=== PATIENT | female | born 1985 | race Caucasian/White ===

== ENCOUNTER 2022-11-07 05:41 | Emergency (ER) | payer OTHER, SELFPAY ==
--- NOTE | ~2022-11-07 | US_ITS ---
EXAMINATION: US right upper quadrant DATE: 11/07/2022 08:37 INDICATION: Right upper quadrant abdominal pain. TECHNIQUE: Multiple grayscale and Doppler ultrasound images of the abdomen were obtained. COMPARISON: None FINDINGS: The visualized portions of the head and body of the pancreas are normal. The liver is ileana l without focal lesion. There is normal flow in main portal vein. The gallbladder is normal in size a nd contains gallstones. No gallbladder wall thickening or sonographic Moreno sign. The common duct is normal and measures 6 mm. IMPRESSION: 1. Cholelithiasis. No evidence of acute cholecystitis. Reviewed, dictated and finalized at location A.
[2022-11-07 05:45] VITALS: BP 139/91; PULSE 92; RESP 16; TEMP 36.2; O2SAT 100
[2022-11-07 08:17] LABS: Basophils Absolute Auto 0.1 K/mm3 (0.0-0.1); Basophils Percent Auto 0.5 % (0.2-1.2); Eosinophils Absolute Auto 0.2 K/mm3 (0-0.3); Eosinophils Percent Auto 2.5 % (0-4.4); Hematocrit 41.6 % (37.0-47.0); Hemoglobin 14.3 g/dL (12.0-15.0); Immature Granulocyte Absolute 0.04 K/mm3 (0.00-0.031); Immature Granulocyte Percent A 0.4 % (0-0.5); Lymphocytes Absolute Auto 2.54 K/mm3 (0.9-3.2); Lymphocytes Percent Auto 26.3 % (18.3-44.2); Mean Corpuscular HGB Conc 34.4 g/dl (32-36); Mean Corpuscular Hemoglobin 30.8 pg (26-34); Mean Corpuscular Volume 89.7 fl (80-100); Mean Platelet Volume 8.8 fl (7.4-10.4); Monocytes Absolute Auto 0.9 K/mm3 (0.1-0.6); Monocytes Percent Auto 9.3 % (2.6-8.5); Neutrophils Absolute Auto 5.9 K/mm3 (1.3-6.7); Platelet Count Result 202 k/mm3 (150-375); Red Blood Count 4.64 M/mm3 (4.2-5.4); White Blood Count 9.6 K/mm3 (4.5-10.0)
[2022-11-07 08:27] LABS: Alanine Aminotransferase 17 U/L (6-35); Albumin Level 4.4 g/dL (3.5-5.1); Alkaline Phosphatase 54 U/L (38-126); Anion Gap 2 mmol/L (8-16); Aspartate Amino Transferase 22 U/L (14-36); Bilirubin,Total 0.3 mg/dL (0.2-1.3); Blood Urea Nitrogen 10 mg/dL (7-17); Calcium 9.1 mg/dL (8.4-10.2); Carbon Dioxide 30 mmol/L (22-30); Chloride 106 mmol/L (98-107); Estimated Glomerular Filt Rate > 60; Glucose 101 mg/dL (65-110); Lipase 95 U/L (23-300); Potassium 4.1 mmol/L (3.4-5.0); Sodium 138 mmol/L (137-145)
[2022-11-07 08:29] LABS: INR 0.9; Partial Thromboplastin Time 33.5 SECONDS (22.3-36.8); Prothrombin Time 12.6 Seconds (11.1-14.7)
[2022-11-07 08:39] LABS: Troponin I < 0.012 ng/mL (0.000-0.034)
[2022-11-07 09:25] LABS: Appearance Urine Cloudy (Clear); Bacteria Urine 1+ /hpf; Bilirubin Urine Negative (Negative); Blood Urine 1+ (Negative); Color Urine Dark Yellow (Yellow); Glucose Urine UA Negative (Negative); Ketones Urine Trace mg/dL (Negative); Leukocyte Esterase Ur Negative LEU/UL (Negative); Need Manual Microscopic Reviewed; Nitrate Urine Negative (Negative); Non Pathogenic Casts 0-2; Protein Urine Trace mg/dL (Negative); Specific Grav Ur 1.033 (1.001-1.035); Squamous Epithelial Cell Urine Occasional /hpf (Few); WBC Urine 0-5 /hpf; pH Urine 5.5 (5.0-9.0)
[2022-11-07 09:26] LABS: Add Urine Microscopic? YES
--- NOTE | 2022-11-07 10:00 | ED.ABDPAIN ---
HPI - Abdominal Pain General Chief Complaint: Abdominal Pain Stated Complaint: abd pain/ gallbladder episode Time Seen by Provider: 11/07/22 07:46 History of Present Illness HPI narrative: Pt presents with intermittent RUQ pain for years but persistent since last night and was getting worse now improving on arrival here and nearly gone. Pt denies fever or vomiting. Pt already on low fat diet because she figured she had GB problems and has been fairly well controlled but never had work up. Related Data Allergies Allergy/AdvReac Type Severity Reaction Status Date / Time No Known Allergies Allergy Verified 11/07/22 05:45 Review of Systems Review of Systems: All systems reviewed & are unremarkable except as noted in HPI and below Exam Const: General: healthy appearing Nutritional Appearance: well nourished Orientation/consciousness: patient oriented x3 Limitations: no limitations Eyes: Pupils: Equal, round and reactive pupils present EOM: EOMs intact bilaterally Resp: Effort & Inspection: normal respiratory effort Auscultation: clear to auscultation bilaterally Cardio: Rate: regular rate Rhythm: regular rhythm GI: GI Palp: Yes Soft to palpation and Yes Tenderness to palpation present (GI) (mild ruq) Auscultation: normal bowel sounds Skin: General skin exam: normal color Rashes: no rashes Wounds: no wounds Neuro: General: patient oriented x3, moves all extremities, no meningeal signs, no focal motor deficits and CN's II-XI intact bilaterally Cranial nerves: Yes Nystagmus not present Speech: normal speech Extrem: General: normal to inspection and no clubbing, cyanosis or edema Psych: Mental Status: mental status grossly normal Affect: normal affect Attitude: cooperative Course Vital Signs Vital signs: Vital Signs Temperature 97.2 F L 11/07/22 05:45 Pulse Rate 92 11/07/22 05:45 Respiratory Rate 16 11/07/22 05:45 Blood Pressure 139/91 H 11/07/22 05:45 Pulse Oximetry 100 11/07/22 05:45 Oxygen Delivery Room Air 11/07/22 05:45 Temperature 97.2 F L 11/07/22 05:45 Pulse Rate 90 11/07/22 10:15 Respiratory Rate 16 11/07/22 10:15 Blood Pressure 127/88 11/07/22 10:15 Pulse Oximetry 100 11/07/22 10:15 Oxygen Delivery Room Air 11/07/22 05:45 MDM - Abdominal Pain MDM Narrative Medical decision making narrative: pt has intermittent ruq pain for some otme worse last night but now improved. ultrasound and labs ordered. Sono show gallstone but no cholecystici labs look good and pt comfortable. discussed with dr kilpatrick and will see in follow up. Differential Diagnosis Differential diagnosis: Likely gastroenteritis, pancreatitis and other (gallstone) Medical Records Attestation: I reviewed the patient's medical records. Lab Data Attestation: I reviewed the patient's lab results. 11/07/22 08:07 11/07/22 08:07 Labs: Lab Results 11/07/22 11/07/22 Range/Units 08:07 08:42 WBC 9.6 (4.5-10.0) K/mm3 RBC 4.64 (4.2-5.4) M/mm3 Hgb 14.3 (12.0-15.0) g/dL Hct 41.6 (37.0-47.0) % MCV 89.7 (80-100) fl MCH 30.8 (26-34) pg MCHC 34.4 (32-36) g/dl RDW 13.0 (11.5-14.5) % Plt Count 202 (150-375) k/mm3 MPV 8.8 (7.4-10.4) fl Immature Gran % (Auto) 0.4 (0-0.5) % Neut % (Auto) 61.0 (45.5-73.1) % Lymph % (Auto) 26.3 (18.3-44.2) % [place] % (Auto) 9.3 H (2.6-8.5) % Eos % (Auto) 2.5 (0-4.4) % Baso % (Auto) 0.5 (0.2-1.2) % Lymph # (Auto) 2.54 (0.9-3.2) K/mm3 [place] # (Auto) 0.9 H (0.1-0.6) K/mm3 Eos # (Auto) 0.2 (0-0.3) K/mm3 Baso # (Auto) 0.1 (0.0-0.1) K/mm3 Abs Immat Gran (auto) 0.04 H (0.00-0.031) K/mm3 Absolute Neuts (auto) 5.9 (1.3-6.7) K/mm3 Absolute Nucleated RBC 0.0 (0.0-0.012) K/mm3 Nucleated RBC % 0.0 (0.0-0.2) % PT 12.6 (11.1-14.7) Seconds INR 0.9 APTT 33.5 (22.3-36.8) SECONDS Sodium 138 (137-145) mmol/L Potassium 4.1 (3.4-5.0) mmol/L Chlo
[2022-11-07 10:15] VITALS: BP 127/88; PULSE 90; RESP 16; O2SAT 100
== END 2022-11-07 10:15 | disposition home or self-care (01) ==
PROVIDERS: Emergency Medicine; Emergency Provider Emergency Medicine
DX: K80.20 Calculus of gallbladder without cholecystitis without obstruction (principal)
CPT/HCPCS: 36415; 76705; 80053; 81001; 81025; 83690; 84484; 85025; 85610; 85730; 99284

== ENCOUNTER 2022-12-25 02:27 | Day surgery (SDC) | payer OTHER, SELFPAY ==
[2022-12-20 15:11] VITALS: BMI 35.3
--- NOTE | 2022-12-20 15:18 | PC.NURSE ---
Report to the Outpatient Waiting Room, entrance under the green pavilion located off [facility], at time 7:30 on date 12/25/22. Planned Procedure Time: 9:30. Time changes happen often and if your time is changed the preop area will call you the afternoon before. - You and your visitor will be asked to self-screen and do not enter if you have any COVID symptoms. - A mask is optional within the hospital at this time. Patients may have clear liquids (water, carbonated beverages, clear teas, apple juice) until 3 hours prior to surgery (6:30) with a maximum of 20 ounces. - No food from midnight until time of surgery Take the following medications with a SIP of water the morning of surgery: NONE DO NOT STOP ANY OF YOUR OTHER PRESCRIPTION MEDICATIONS PRIOR TO SURGERY ?EXCEPT THE FOLLOWING Medications to discontinue per physician: VITAMINS Date to take last dose: 12/21/22 Please no make-up, nail guinean, hairspray, perfume, deodorant, or body powder the day of surgery. No jewelry (including any body piercings) or valuables the day of surgery, leave them at home. Please take a shower or bath the night before, or the morning of, surgery with an antibacterial soap. Wear comfortable, loose fitting clothing. - Jewelry must be removed prior to entering the operating room. Rings and piercings that are not removed may be cut off. - The hospital will not accept responsibility for valuables. - Please leave all valuables, including medications, at home the day of surgery. If you are going home after surgery, a licensed service parts driver must drive you home. - NO public transportation without another adult if you receive anesthesia. - We recommend that an adult stay with you for 24 hours following discharge. - We also recommend that you do not drive, make important decision, drink alcoholic beverages, or take any drugs that were not prescribed by your health care provider for at least 24 hours after your discharge time. Follow any additional instructions given to you from your surgeon. If you or anyone in your household have experienced Covid symptoms in the past week, please notify your surgeon or the nurse liaison at the phone number below for possible testing. Telephone instructions given to PT - DENISE MORENO and asked if any additional questions and then verbalized understanding. Patient advised to call surgeon office or pre surgery nurse liaison [phone] if any additional questions.
[2022-12-25] VITALS (12 sets, daily range): BP systolic 109–139; BP diastolic 67–87; PULSE 57–84; RESP 14–16; TEMP 36.6–36.8; O2SAT 96–100; BMI 34.8
--- NOTE | 2022-12-25 07:54 | WPDHPUPDATE1 ---
History and Physical Update Update Date/Time: 12/25/22 07:54 History and Physical has been reviewed, including an updated exam of the patient. There are NO changes in the patient's condition. Risks, benefits, and alternatives have been discussed and questions answered. Patient agrees to proceed with procedure.
--- NOTE | 2022-12-25 08:02 | ECG_ITS ---
Measurements Intervals [place] Rate: 70 P: 67 TX: 170 QRS: 15 QRSD: 98 T: 15 QT: 377 QTc: 408 Interpretive Statements SINUS RHYTHM DELAYED PRECORDIAL R/S TRANSITION CONSIDER INFERIOR INFARCT, AGE INDETERMINATE NONSPECIFIC T-WAVE ABNORMALITY- ANTEROLATERAL LEADS ABNORMAL ECG NO PREVIOUS ECG AVAILABLE FOR COMPARISON Electronically Signed On 12-25-2022 9:13:08 CDT by Dillon Chadwick D.O.
--- NOTE | 2022-12-25 08:03 | P.PNAN_ITS ---
Anes - Initial Pre Proc Eval Procedure: Operation Date: 12/25/22 09:30 Proposed Procedures p Laparoscopic Cholecystectomy - Epifanio John MD Date/Time: 12/25/22 08:03 Surgeon: Epifanio John MD Pre Op Diagnosis: Chr Cholecystitis with Stones Patient Data Age: 37 Gender: F Height: 1.51 m Weight: 80.75 kg Allergies Allergy/AdvReac Type Severity Reaction Status Date / Time Penicillins Allergy Unknown Unknown Verified 12/20/22 15:11 paroxetine [From Paxil] Allergy Other Verified 12/20/22 15:17 Home Medications Medication Instructions Recorded Confirmed Type multivitamin 1 tablet PO DAILY 11/19/22 12/25/22 History Patient hx anesthesia problems: none Family hx anesthesia problems: none Results Review: All pre-operative results and documents have been reviewed as part of the pre- operative evaluation. [facility] Past Medical History Medical History (Updated 12/25/22 @ 08:06 by Abhay Blackburn DO) Anxiety Depression Seizure age 14 Surgical History Surgical History History of surgery on wrist Previous section 2004, 2006, 2011, 2012 Family History Family History Father Hypertension Other Cancer Diabetes mellitus Heart disease Social History Social History (Updated 12/19/22 @ 10:34 by Lamar Verma) Smoking packs per day: 1 Smoking cigarettes per day: 20.0 Years smoked: 20 Smoking pack-years: 20.00 Smoking status: Current every day smoker Tobacco type: cigarettes Alcohol intake: current Alcohol use details: 4/YEAR Substance use: never Substance use type: does not use Living arrangements: with family Occupation/Education: occupation 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 Informed Consent: The patient's anesthetic plan and its attendant risks and benefits were discussed with the patient/family/POA. Questions were solicited and answers provided to the satisfaction of the patient/family/POA.
[2022-12-25] MEDS: LACTATED RINGERS 1,000 ML 30 ML IV CONT ×2 (08:45→11:22)
[2022-12-25] MEDS: ACETAMINOPHEN 500 MG TABLET 1000 MG PO (09:02)
[2022-12-25] MEDS: KETOROLAC 15 MG/ML VIAL (*BKC) IV PUSH (09:03)
[2022-12-25 09:09] LABS: Alanine Aminotransferase 15 U/L (6-35); Albumin Level 4.3 g/dL (3.5-5.1); Alkaline Phosphatase 47 U/L (38-126); Amylase 71 U/L (30-110); Aspartate Amino Transferase 17 U/L (14-36); Bilirubin,Total 0.4 mg/dL (0.2-1.3); Lipase 114 U/L (23-300)
[2022-12-25] MEDS: ceFAZolin 2 GM/D5W 50 ML 2 GM/50 ML BAG IVPB (10:12)
--- NOTE | 2022-12-25 10:24 | W.PM.PROC2 ---
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 These are often associated with eating fatty foods. She had a particularly severe episode of this and went to the emergency room just a couple of weeks ago. Evaluation there did show gallstones but no evidence of acute cholecystitis. Her liver function tests were normal as well. She was seen in the office and felt to have chronic cholecystitis with gallstones. She is taken to surgery now for laparoscopic cholecystectomy Findings Many stones in the gallbladder, gallbladder wall thickening consistent with chronic inflammation. No biliary ductal dilatation. No liver abnormalities. Description of Procedure Patient was taken to surgery and induced into general anesthesia. The abdomen is prepped and draped. Trocars were placed in usual fashion using [employer] optical trocars and a 5 mm camera. Prior to placing the initial trocar, a varies needle was introduced to insufflate the abdomen adequately. With the trocars in position, the patient was placed in reverse Trendelenburg and the gallbladder was easily visualized. A laparoscopic aspirator was used to decompress the gallbladder and the cholecystotomy was closed with a Vicryl endoloop. The gallbladder was then retracted anterosuperiorly. Dissection was carried out in the cholecystohepatic triangle. The cystic duct and cystic artery were then dissected out clearly. The gallbladder was dissected off the liver at its lower 3rd. Critical view was achieved. We then securely clipped and divided the cystic duct and cystic artery. Gallbladder was dissected off the liver over the remainder of the attachments to the gallbladder fossa and the peritoneal attachments. Cautery was used for hemostasis. Once the gallbladder was freed from the liver, it was placed in an Endo-Catch bag. It was retrieved through the 10 11 epigastric trocar site. We then replaced the epigastric trocar and reviewed the right upper quadrant. Some additional cautery was used on the gallbladder fossa. We then repeatedly irrigated and suctioned the areas of dissection and the right upper quadrant. All looked good with no evidence of bleeding or bile leakage. We then evacuated CO2 and removed the trocar sleeves. Skin wounds were closed with subcuticular 4-0 Monocryl skin suture. The wounds were dressed with Exofin surgical adhesive. Patient was awakened and taken to recovery in good condition. Sponge and needle counts were correct x2. Estimated Blood Loss -10 Drains No Packing No Pathology Yes (Gallbladder) Complications No immediate complications Condition Stable Disposition PACU [facility] Billing Surgery - Charge Forward: Surgery Billing (Laparoscopic cholecystectomy)
[2022-12-25] MEDS: BUPIVACAINE/EPINEPHRINE 0.5% 50 ML VIAL 30 ML INFILTRATE (10:27)
[2022-12-25] MEDS: fentaNYL CITRATE INJ (*CRX) 100 MCG/2 ML VIAL 25 MCG IV PUSH ×2 (12:22→12:34)
== END 2022-12-25 14:10 | disposition home or self-care (01) ==
PROVIDERS: Visit Provider Surgery
PROC: 0FT44ZZ Resection of Gallbladder, Percutaneous Endoscopic Approach (ICD-10-PCS; CPT 47562; principal; 2022-12-25 09:30)
DX: K80.10 Calculus of gallbladder with chronic cholecystitis without obstruction (principal); F17.210 Nicotine dependence, cigarettes, uncomplicated; E66.9 Obesity, unspecified; Z68.34 Body mass index [BMI] 34.0-34.9, adult
CPT/HCPCS: 47562; 36415; 80076; 82150; 83690; 86850; 86900; 86901; 88304; 93005; A9270; C1713; J0690; J1100; J1885; J2250; J2405; J2704; J3010; J7120

== ENCOUNTER 2025-02-19 16:22 | Emergency (ER) | payer SELFPAY ==
--- NOTE | ~2025-02-19 | CT_ITS ---
CT abdomen pelvis w con Clinical History: epigastric pain going to back. hx cholecystectomy . Comparison: None Technique: Axial images lung bases to symphysis pubis 100 mL Omnipaque 350 Coronal, sagittal reformats CT images acquired with automatic exposure control for dose reduction DLP: 611 mGy-cm Findings: Lung bases: Clear. Visualized heart and pericardium: Unremarkable. Liver: Unremarkable. Gallbladder: Removed. Spleen: Unremarkable. Pancreas: Unremarkable. Adrenal glands: Unremarkable. Kidneys: Right kidney- No hydronephrosis. No renal stones. Left kidney- No hydronephrosis. No renal stones. Distal esophagus/stomach: Distal gastric wall thickening. Mild distal esophagitis. Small bowel loops: Normal caliber and wall thickness. Colon: Diverticula. Normal caliber and wall thickness. Normal RLQ appendix. Nodes: No enlarged nodes. Peritoneum: No ascites. No free air. Urinary bladder: Unremarkable. Uterus: Unremarkable. Adnexa: No masses. Bones: No acute bony abnormality. Soft tissues: Small umbilical hernia with fat. Aorta: No aneurysm or dissection. IVC: Unremarkable. Main portal vein/SMV/splenic vein: Patent. IMPRESSION: 1. Gastritis. Reviewed, dictated and finalized at location R. 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 Gastritis.
[2025-02-19 16:28] VITALS: BP 142/88; PULSE 97; RESP 16; TEMP 36.8; O2SAT 99
[2025-02-19 18:22] VITALS: BP 130/81; PULSE 105; RESP 17; O2SAT 100
--- NOTE | 2025-02-19 19:47 | ED_ITS ---
HPI - Abdominal Pain General Chief Complaint: Abdominal Pain Stated Complaint: ABD PAIN Time Seen by Provider: 02/19/25 19:35 History of Present Illness HPI narrative: 39-year-old female with history of prior cholecystectomy presenting to the emergency depart with colicky epigastric abdominal pain sometimes radiating towards her back. Started at 2:00 a.m. and woke her from sleep associated with nausea and 1 episode of emesis. No lower abdominal symptoms. No diarrhea, constipation, shortness a breath, chest pain. No fever or chills. No traumatic injuries. Was otherwise in her normal state of health. States it feels very similar to her gallbladder problems without was taken care of 2 years ago. No other abdominal surgical history. Denies any recent illnesses or new medications. Related Data Home Medications ?Medication ?Instructions ?Recorded ?Confirmed ?Last Taken ?Type multivitamin 1 tablet PO DAILY 11/19/22 1 04/19/22 12/21/22 History Allergies Allergy/AdvReac Type Severity Reaction Status Date / Time Penicillins Allergy Unknown Unknown Verified 02/19/25 16:28 paroxetine (From Paxil) Allergy Other Verified 02/19/25 16:28 Review of Systems 2 Review of Systems: As reviewed above in HPI All systems reviewed & are unremarkable except as noted in HPI and below PMFSH Past Medical History Medical History Seizure age 14 Anxiety Depression Surgical History Surgical History History of laparoscopic cholecystectomy History of surgery on wrist Previous section 2004, 2006, 2011, 2012 Family History Family History Father Hypertension Other Cancer Diabetes mellitus Heart disease Social History Social History Smoking packs per day: 1 Smoking cigarettes per day: 20.0 Years smoked: 20 Smoking pack-years: 20.00 Smoking status: Current every day smoker Tobacco type: cigarettes Alcohol intake: current Alcohol use details: 4/YEAR Substance use: never Substance use type: does not use Living arrangements: with family 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 Mucous membranes moist. NECK: Supple. CHEST: [Clear to auscultation. No respiratory distress.] HEART: [Regular rate and rhythm]. No murmur heard. [Normal peripheral pulses.] ABDOMEN: Soft and nondistended, tender to palpation epigastrium minimally, no rebound or guarding. No rigidity. No signs of peritonitis. EXTREMITIES: Normal range of motion. [No edema.] SKIN: Warm, dry, no rash. NEURO: [No focal deficits]. Alert and oriented [x3.] PSYCH: [Normal mood and affect.] Course Vital Signs Vital signs: Vital Signs Temperature 36.8 C 02/19/25 16:28 Pulse Rate 97 02/19/25 16:28 Respiratory Rate 16 02/19/25 16:28 Blood Pressure 142/88 H 02/19/25 16:28 Pulse Oximetry 99 02/19/25 16:28 Oxygen Delivery Room Air 02/19/25 16:28 Temperature 36.8 C 02/19/25 16:28 Pulse Rate 89 02/20/25 00:50 Respiratory Rate 18 02/20/25 00:50 Blood Pressure 107/67 02/20/25 00:50 Pulse Oximetry 100 02/20/25 00:50 Oxygen Delivery Room Air 02/19/25 16:28 [facility] MDM Narrative Medical decision making narrative: 39-year-old female with history of prior cholecystectomy presenting to the emergency depart with colicky epigastric abdominal pain sometimes radiating towards her back. Started at 2:00 a.m. and woke her from sleep associated with nausea and 1 episode of emesis. No lower abdominal symptoms. No diarrhea, constipation, shortness a breath, chest pain. No fever or chills. No traumatic injuries. Was otherwise in her normal state of health. States it feels very similar to her gallbladder problems without was taken care of 2 years ago. No other abdominal surgical history. Denies any recent illnesses or new medications. Patient does have a mildly tender epigastrium. No fever or significant blood pressure concerns. No tachypnea or hypoxemia. No significant tachycardia. She otherwise is well appearing not any distress. History of cholecystectomy but still potential for choledocholithiasis or other biliary tree pathology, hepatitis, pancreatitis, intra-abdominal infection. Possibly gastritis. Otherwise normal state of health. Given pain control medications fluids and Zofran. Laboratory studies and a CT scan obtained for further evaluation. CT scan report shows marked thickening of the distal stomach which could be infectious or inflammatory. Possibility of malignant less likely. Adjacent lymph nodes are 6 mm and indeterminate. Solid organs are within normal limits. No bowel obstruction. No diverticulitis. Normal appendix. Laboratory studies largely unremarkable. No significant leukocytosis or anemia. Normal platelet count. Electrolytes are normal. Normal creatinine and LFTs. Normal lipase. Negative test. Patient is safe for discharge and given GI follow-up instructions as well as prescription for Pepcid and return precautions. Differential Diagnosis Differential Diagnosis: History of cholecystectomy but still potential for choledocholithiasis or other biliary tree pathology, hepatitis, pancreatitis, intra-abdominal infection. Possibly gastritis. Lab Data MDM Lab Attestation statement: I personally reviewed the patient's lab results. 02/19/25 20:08 02/19/25 20:08 Labs: Lab Results 02/19/25 Range/Units 20:08 WBC 10.3 H (4.5-10.0) K/mm3 RBC 4.58 (4.2-5.4) M/mm3 Hgb 13.8 (12.0-15.0) g/dL Hct 40.2 (37.0-47.0) % MCV 87.8 (80-100) fl MCH 30.1 (26-34) pg MCHC 34.3 (32-36) g/dl RDW 13.2 (11.5-14.5) % Plt Count 197 (150-375) k/mm3 MPV 9.2 (7.4-10.4) fl Immature Gran % (Auto) 0.3 (0-0.5) % Neut % (Auto) 61.9 (45.5-73.1) % Lymph % (Auto) 24.9 (18.3-44.2) % [place] % (Auto) 10.0 H (2.6-8.5) % Eos % (Auto) 2.2 (0-4.4) % Baso % (Auto) 0.7 (0.2-1.2) % Lymph # (Auto) 2.55 (0.9-3.2) K/mm3 [place] # (Auto) 1.0 H (0.1-0.6) K/mm3 Eos # (Auto) 0.2 (0-0.3) K/mm3 Baso # (Auto) 0.1 (0.0-0.1) K/mm3 Abs Immat Gran (auto) 0.03 (0.00-0.031) K/mm3 Absolute Neuts (auto) 6.3 (1.3-6.7) K/mm3 Absolute Nucleated RBC 0.000 (0.0-0.012) K/mm3 Nucleated RBC % 0.0 (0.0-0.2) % Sodium 137 (137-145) mmol/L Potassium 3.5 (3.4-5.0) mmol/L Chloride 106 (98-107) mmol/L Carbon Dioxide 27 (22-30) mmol/L Anion Gap 4 (4-12) mmol/L BUN 9 (7-17) mg/dL Creatinine 0.69 L (0.7-1.0) mg/dL Estim Creat Clear Calc Not Reportable Estimated GFR > 60 (59 - ) Glucose 94 (65-110) mg/dL Calcium 8.8 (8.4-10.2) mg/dL Magnesium 2.1 (1.6-2.3) mg/dL Total Bilirubin 0.4 (0.2-1.3) mg/dL AST 21 (14-36) U/L ALT 18 (6-35) U/L Alkaline Phosphatase 75 (38-126) U/L Total Protein 7.0 (6.3-8.2) g/dL Albumin 4.1 (3.5-5.1) g/dL Lipase 57 (23-300) U/L Serum HCG, Qual Negative Imaging Data Attestation: I personally reviewed and interpreted this imaging study as follows: My impression: Thickened distal stomach possibly infectious versus inflammatory versus less likely malignant Discharge Plan Discharge Clinical Impression: Gastritis, Gastric wall thickening Patient Disposition: Home Condition: Stable Instructions: Antibiotic Form, Gastritis (DC) Additional Instructions: Laboratory studies are all within normal limits without any acute findings. CT scan report shows thickening of the distal stomach wall consistent with gastritis which could be infectious or inflammatory in nature. Most likely inflammatory but there are some adjacent lymph node enlargements so this needs to be followed up with your primary care provider as well as a GI doctor which we have referred you to. We have given you a prescription that can help with symptoms in the meantime. No signs of any emergent concerns today. Return with any worsening symptoms, new developing concerns or any other emergencies otherwise follow-up with your regular doctors. Patient Language: Unknown Prescriptions: New famotidine [Pepcid] 20 mg tablet 20 mg PO BID Qty: 60 0RF No Action multivitamin Tablet 1 tablet PO DAILY Follow-up/Referrals: Laura Allen MD [Physician, Gastroenterology] - 1 Week Referral Note: Stomach wall thickening with adjacent lymph nodes PHYSICIAN NOT ON STAFF,NONSTAFF [Non-Staff] Time of Disposition: 00:43
--- OUTSIDE RECORDS SUMMARY | 2025-02-19 19:49 | XMS_ITS | Clinical Summary ---
Author Organization [facility] Address [address] [place] [id number] Care Team Providers Care Utility [employer]cre[employer] Name Role Phone Unavailable Primary Care Provider Unavailabl e Social History Tobacco Use Types Packs/Day Years Used Date Smoking Tobacco: Never Assessed Comments Unknown Sex and Gender Information Value Date Recorded Sex Assigned at Not on file Legal Sex Female 7:55 PM CDT Gender Identity Not on file Sexual Orientation Not on file Plan of Treatment Health Maintenance Due Date Last Done Comments Cervical Cancer Screening Pa p Smear (Age 30 to 64) Every 3 Years 1983 Annual Physical 07/15/1986 Hepatitis C 07/15/2001 DTaP, Tdap and Td Vaccines ( 1 - Tdap) 07/15/2002 Hepatitis B Vaccines (1 of 3 - 19+ 3-dose series) 07/15/2002 HPV Vaccines (1 - 3-dose SCD M series) 07/15/2010 Cervical Cancer Screening Pa p with HPV Testing (Age 30 to 64) Every 5 Years 07/15/2013 Cervical Cancer Screening with HPV 07/15/2013 Mammogram Screening 2023 COVID-19 Vaccine (2024-2 6 season) 2024 Influenza Adult (#1) 2024 Hepatitis A Vaccines Aged Out No long er eligible based on patient's age to complete this topic Meningococcal B Vaccine Aged Out No l onger eligible based on patient's age to complete this topic Meningococcal Vaccine Aged Out No adair eliseo eligible based on patient's age to complete this topic Pneumococcal Vaccine: Pediat rics (0 to 5 Years) and At-Risk Patients (6 to 49 Years) Aged Out No longer eligible b ased on patient's age to complete this topic RSV Immunizations Under 20 Months Aged Out No longer eligible based on patient's age to complete this topic
[2025-02-19] MEDS: LACTATED RINGERS 1,000 ML 999 ML IV CONT (20:13)
[2025-02-19] MEDS: ONDANSETRON INJ 4 MG/2 ML VIAL IV PUSH (20:13)
[2025-02-19] MEDS: FAMOTIDINE 20 MG/2 ML VIAL IV PUSH (20:13)
[2025-02-19 20:15] VITALS: BP 126/86; PULSE 82; RESP 16; O2SAT 98
[2025-02-19 20:16] LABS: Hematocrit 40.2 % (37.0-47.0); Hemoglobin 13.8 g/dL (12.0-15.0); Immature Granulocyte Percent A 0.3 % (0-0.5); Lymphocytes Absolute Auto 2.55 K/mm3 (0.9-3.2); Mean Corpuscular HGB Conc 34.3 g/dl (32-36); Mean Corpuscular Hemoglobin 30.1 pg (26-34); Mean Corpuscular Volume 87.8 fl (80-100); Nucleated Red Blood Cells Absolute Auto 0.000 K/mm3 (0.0-0.012); Nucleated Red Blood Cells Perc 0.0 % (0.0-0.2); Platelet Count Result 197 k/mm3 (150-375); Red Blood Count 4.58 M/mm3 (4.2-5.4); White Blood Count 10.3 K/mm3 (4.5-10.0)
[2025-02-19] MEDS: KETOROLAC 15 MG/ML VIAL (*BKC) IV PUSH (20:17)
[2025-02-19 20:25] LABS: SPREG INTERNAL CONTROL Positive; Serum Qual hCG Negative
[2025-02-19 20:28] LABS: Alanine Aminotransferase 18 U/L (6-35); Albumin Level 4.1 g/dL (3.5-5.1); Alkaline Phosphatase 75 U/L (38-126); Anion Gap 4 mmol/L (4-12); Aspartate Amino Transferase 21 U/L (14-36); Bilirubin,Total 0.4 mg/dL (0.2-1.3); Blood Urea Nitrogen 9 mg/dL (7-17); Calcium 8.8 mg/dL (8.4-10.2); Carbon Dioxide 27 mmol/L (22-30); Chloride 106 mmol/L (98-107); Estimated Glomerular Filt Rate > 60; Glucose 94 mg/dL (65-110); Magnesium 2.1 mg/dL (1.6-2.3); Potassium 3.5 mmol/L (3.4-5.0); Sodium 137 mmol/L (137-145); Total Protein 7.0 g/dL (6.3-8.2)
[2025-02-19 21:20] VITALS: BP 134/80; PULSE 83; RESP 17; O2SAT 96
[2025-02-19 22:53] LABS: Lipase 57 U/L (23-300)
--- NOTE | 2025-02-19 22:59 | PC.NURSE ---
Report to Soumya LOUIS
[2025-02-19 23:58] VITALS: BP 124/83; PULSE 76; RESP 14; O2SAT 99
[2025-02-20 00:50] VITALS: BP 107/67; PULSE 89; RESP 18; O2SAT 100
== END 2025-02-20 00:51 | disposition home or self-care (01) ==
PROVIDERS: Emergency Provider Student in an Organized Health Care Education/Training Program
DX: K29.70 Gastritis, unspecified, without bleeding (principal); F41.9 Anxiety disorder, unspecified; F32.A Depression, unspecified; Z90.49 Acquired absence of other specified parts of digestive tract; F17.210 Nicotine dependence, cigarettes, uncomplicated
CPT/HCPCS: 36415; 74177; 80053; 83690; 83735; 84703; 85025; 96361; 96374; 96375; 99284; J1885; J2405; J7120; Q9967